=== PATIENT | female | born 1940 | race Hispanic/Latino ===

== ENCOUNTER 2019-08-11 17:54 | Emergency (ER) | payer MEDICARE ==
[~2019-08-11] VITALS: Ht 162.6 cm; Wt 75.3 kg
--- OUTSIDE RECORDS SUMMARY | 2019-08-11 17:56 | XMS REPORT | Clinical Summary ---
Author Author [facility] Organization [facility] Address Unknown Phone Unavailable Care Team Providers Care Cycle Counter Name Role Phone Orly Gutierrez MD PCP Allergies Comments Active Allergy Reactions Severity Noted Date Penicillins Itching, Rash Low 05/27/2017 Medications End Date Status Medication Sig Dispensed Refills Start Date Active insulin GLARGINE (LANTUS) Inject 40 0 100 unit/mL injection Units under (vial) the skin 2 (two) times a day. Active metFORMIN (GLUCOPHAGE) Take 1,000 mg 0 1,000 mg tablet by mouth 2 (two) times a day with meals. Active enalapril (VASOTEC) 10 MG Take 20 mg by 0 tablet mouth daily. Active pravastatin (PRAVACHOL) Take 20 mg by 0 20 MG tablet mouth nightly. Active ferrous sulfate 325 (65 Take 325 mg 0 FE) MG tablet by mouth daily with breakfast. Active aspirin (ECOTRIN) 81 MG Take 81 mg by 0 enteric coated tablet mouth every morning. Active CALCIUM CITRATE/VITAMIN Take 2 0 D3 (CITRACAL + D ORAL) tablets by mouth every morning. Active cyclobenzaprine Take 5 mg by 0 (FLEXERIL) 5 mg tablet mouth nightly. Active ascorbic acid, vitamin C, Take 500 mg 0 (VITAMIN C) 500 MG tablet by mouth daily. Active ranitidine (ZANTAC) 150 Take 150 mg 0 MG tablet by mouth 2 (two) times a day. Active glipiZIDE (GLUCOTROL) 10 Take 10 mg by 0 MG tablet mouth 2 (two) times a day before meals. Active meloxicam (MOBIC) 7.5 mg Take 7.5 mg 0 tablet by mouth daily. Active gabapentin (NEURONTIN) Take 300 mg 0 300 mg capsule by mouth 3 (three) times a day. Active carvedilol (COREG) 6.25 Take 6.25 mg 0 MG tablet by mouth 2 (two) times a day with meals. Active atorvastatin (LIPITOR) 40 Take 40 mg by 0 MG tablet mouth daily. Active oxybutynin XL Take 1 tablet 30 tablet 3 (DITROPAN-XL) 5 MG 24 hr (5 mg total) 9 tablet by mouth daily. 04/26/2020 Active estradiol (ESTRACE) 0.01 Apply nightly 42.5 g 5 % (0.1 mg/gram) vaginal for 3 weeks, 9 cream then 3 times per week. 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 To take with a vitamin C 500mg daily, stop if taking antibiotics 07/13/2020 Active oxybutynin XL (DITROPAN Take 1 tablet 90 tablet 3 XL) 15 MG 24 hr tablet (15 mg total) 9 by mouth daily. 09/05/2019 Active lidocaine (LIDODERM) 5 % Place 1 patch 30 patch 0 on the skin 9 daily for 30 days. Remove & Discard patch within 12 hours or as directed by MD 08/13/2019 Active traMADol (ULTRAM) 50 mg Take 1 tablet 10 tablet 0 tabletIndications: Acute (50 mg total) 9 Pain by mouth every 6 (six) hours as needed for moderate pain for up to 7 days .Acute Pain. 04/27/2019 Discontinued (Reorder) methenamine (HIPREX) 1 Take 1 g by 0 gram tablet mouth every morning. To take with a vitamin C 500mg daily, stop if taking antibiotics 12/05/2018 Discontinued (Reorder) oxybutynin XL Take 5 mg by 0 (DITROPAN-XL) 5 MG 24 hr mouth daily. 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 To take with a vitamin C 500mg daily, stop if taking antibiotics 06/04/2019 trimethoprim (TRIMPEX) Take 1 tablet 30 tablet 2 100 mg tablet (100 mg 9 total) by mouth daily for 30 days. Status Hospital, Clinic, or Ordered Dose Route Frequency Start End Date Other Facility Date Administered Medication Ended gentamicin (GARAMYCIN) 80 mg IM once 01/24/20 injection 80 19 9 mgIndications: Chronic infective cystitis with hematuria, Bilateral hydronephrosis Ended gentamicin (GARAMYCIN) 80 mg IM once 04/26/20 injection 80 19 9 mgIndications: Bilateral hydronephrosis, Chronic infective cystitis with hematuria, Urinary incontinence, urge, Urinary retention with incomplete bladder emptying Active Problems Problem Noted Date Urinary retention with incomplete bladder emptying 01/23/2019 Urinary incontinence, urge 01/23/2019 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 Bilateral hydronephrosis 06/02/2017 Encounters Care Team Description Date Type Specialty Rehrer, Jose Maria Becerra DO Acute right-sided thoracic back pain (Primary Dx); Urinary tract infection without hematuria, site unspecified; Essential hypertension 08/06/2019 Emergency Emergency Medicine Lisandro Fulton MD 07/14/2019 Transcribe Urology Orders Lisandro Fulton MD 07/14/2019 Telephone Urology Lucero Orosco PA Chronic radiation cystitis (Primary Dx) 07/06/2019 Office Visit UrologLisandro Villatoro MD 05/18/2019 Telephone Urology Shavonne Peterson MA 05/15/2019 Telephone Urology Lucero Orosco PA 05/05/2019 Orders Only Urology Lisandro Fulton MD Chronic infective cystitis with hematuria 04/28/2019 Telephone Urology Lisandro Fulton MD Bilateral hydronephrosis (Primary Dx); Chronic infective cystitis with hematuria; Urinary incontinence, urge; Urinary retention with incomplete bladder emptying 04/26/2019 Office Visit Urology Nanci Patel MA 02/24/2019 Telephone Urology Lisandro Fulton MD Chronic infective cystitis with hematuria (Primary Dx); Bilateral hydronephrosis; Urinary incontinence, urge; Urinary retention with incomplete bladder emptying 01/23/2019 Office Visit Urology Lucero Orosco PA 12/08/2018 Telephone Urology Lucero Orosco PA 12/07/2018 Telephone Urology Ligia Pacheco 12/06/2018 Telephone Employee Health Lucero Orosco PA Recurrent UTI (urinary tract infection) (Primary Dx); Chronic radiation cystitis; Mixed incontinence; Atrophic vaginitis 12/05/2018 Office Visit Urology after 08/10/2018 Social History Date Tobacco Use Types Packs/Day Years Used Never Smoker Smokeless Tobacco: Never Used Drinks/Week oz/Week Comments Alcohol Use No Sex Assigned at Date Recorded Not on file Industry Job Start Date Occupation Not on file Not on file Not on file Travel End Travel History Travel Start No recent travel history available. Last Filed Vital Signs Reading Time Taken Comments Vital Sign 185/77 08/06/2019 11:48 AM CDT Blood Pressure 80 08/06/2019 11:48 AM CDT Pulse 37.4 C (99.3 F) 08/06/2019 11:48 AM CDT Temperature 18 08/06/2019 11:48 AM CDT Respiratory Rate 97% 08/06/2019 11:48 AM CDT Oxygen Saturation - - Inhaled Oxygen Concentration 62.6 kg (138 lb) 08/06/2019 11:48 AM CDT Weight 157.5 cm (5' 2") 08/06/2019 11:48 AM CDT Height 25.24 08/06/2019 11:48 AM CDT Body Mass Index Plan of Treatment Care Team Description Date Type Specialty Lisandro Fulton MD [address] [address] 10/02/2019 Office Visit Urology Health Maintenance Due Date Last Done Comments SHINGLES VACCINES (#1) 1992 65+ PNEUMOCOCCAL VACCINE 2007 (1 of 2 - PCV13) INFLUENZA VACCINE 06/22/2019 Procedures Comments Procedure Name Priority Date/Time Associated Diagnosis ESTIMATED GFR STAT 08/06/2019 1:51 PM CDT TROPONIN, I-STAT STAT 08/06/2019 1:51 PM CDT COMPREHENSIVE METABOLIC STAT 08/06/2019 PANEL 1:51 PM CDT HC COMPLETE BLD COUNT STAT 08/06/2019 W/AUTO DIFF 1:51 PM CDT GRAM STAIN Routine 08/06/2019 12:42 PM CDT URINE CULTURE Routine 08/06/2019 12:42 PM CDT URINALYSIS STAT 08/06/2019 12:41 PM CDT ECG 12-LEAD STAT 08/06/2019 12:33 PM CDT XR CHEST 2 VW STAT 08/06/2019 12:28 PM CDT XR THORACIC SPINE 2 VW STAT 08/06/2019 12:28 PM CDT ECG ED PRELIMINARY Routine 08/06/2019 INTERPRETATION 12:22 PM CDT URINE CULTURE Routine 07/06/2019 Chronic radiation 12:38 PM CDT cystitis POC URINALYSIS DIPSTICK Routine 07/06/2019 Chronic radiation 12:16 PM CDT cystitis URINE CULTURE Routine 04/26/2019 Bilateral hydronephrosis 1:40 PM CDT Chronic infective cystitis with hematuria Urinary incontinence, urge Urinary retention with incomplete bladder emptying POC URINALYSIS DIPSTICK Routine 04/26/2019 Bilateral hydronephrosis 1:27 PM CDT Chronic infective cystitis with hematuria Urinary incontinence, urge Urinary retention with incomplete bladder emptying URINE CULTURE Routine 01/23/2019 Chronic infective 5:33 PM [employer] cystitis with hematuria Bilateral hydronephrosis POC URINALYSIS DIPSTICK Routine 01/23/2019 Chronic infective 3:17 PM [employer] cystitis with hematuria Bilateral hydronephrosis URINE CULTURE Routine 12/05/2018 Recurrent UTI (urinary 1:56 PM [employer] tract infection) POC URINALYSIS DIPSTICK Routine 12/05/2018 Recurrent UTI (urinary 12:12 PM [employer] tract infection) after 08/10/2018 Results * Estimated GFR (08/06/2019 1:51 PM CDT) [facility] Estimated GFR 74 mL/min/1.73 m2 [facility] Comment: [facility]pretation [facility]ENTER G1 >=90 Normal or high G2 60-89Mildly decreased [id number] Mildly to moderately decreased [id number] Moderately to severely decreased G4 15-29Severely decreased G5 <15Kidney failure The eGFR was calculated using the Chronic Kidney Disease Epidemiology Collaboration (CKD-EPI) equation. Interpretation is based on recommendations of the National Kidney Foundation-Kidney Disease Outcomes Quality Initiative (NKF-KDOQI) published in 2014. Specimen Plasma specimen Performing Organization Address City/[facility]/[place] [address] PATHOLOGY AND GENOMIC [address] [place], [place] [id number] [place] [address] EMERGENCY CARE CENTER * Troponin, I-Stat (08/06/2019 1:51 PM CDT) [facility] Troponin, 0.01 0.00 - 0.08 ng/mL [facility] I-Stat Comment: [facility] EMERGENCY CARE changed methodology effective: CENTER 03/28/2019 at 10:00 am The new method has a 99th percentile cutoff of 0.040 ng/mL Specimen Plasma specimen Performing Organization Address City/[facility] [place] [address] PATHOLOGY AND [address] [place] [address] EMERGENCY CARE CENTER * CBC with platelet and differential (08/06/2019 1:51 PM CDT) [facility] WBC 9.34 4.50 - 11.00 k/uL [facility] RBC 3.87 (L) 4.20 - 5.50 m/uL [facility] HGB 11.8 (L) 12.0 - 16.0 g/dL [facility] HCT 36.8 (L) 37.0 - 47.0 % [facility] MCV 95.1 82.0 - 100.0 fL [facility] MCH 30.5 27.0 - 34.0 pg [facility] MCHC 32.1 31.0 - 37.0 g/dL [facility] RDW - SD 43.4 37.0 - 55.0 fL [facility] MPV 9.5 8.8 - 13.2 fL [facility] Platelet count 346 150 - 400 k/uL [facility] Neutrophils 70.2 (H) 39.0 - 69.0 % [facility] Lymphocytes 23.4 (L) 25.0 - 45.0 % [facility] Monocytes 4.6 0.0 - 10.0 % [facility] Eosinophils 1.6 0.0 - 5.0 % [facility] Basophils 0.2 0.0 - 1.0 % [facility] Specimen Blood Performing Organization Address City/State/Zipcode Phone Number DEPARTMENT OF [facility] [place] [address] PATHOLOGY AND GENOMIC [address], [address] [place] [address] EMERGENCY CARE CENTER * Comprehensive metabolic panel (08/06/2019 1:51 PM CDT) Sodium 137 135 - 148 mEq/L [facility] Potassium 4.1 3.5 - 5.0 mEq/L [facility] Chloride 102 98 - 112 mEq/L [facility] CO2 23 (L) 24 - 31 mEq/L [facility] Anion gap 12@ANIO 7 - 15 mEq/L [facility] BUN 18 8 - 23 mg/dL [facility] Creatinine 0.77 0.50 - 0.90 mg/dL [facility] Glucose 187 (H) 65 - 99 mg/dL [facility] Calcium 9.3 8.8 - 10.2 mg/dL [facility] Protein 7.5 6.3 - 8.3 g/dL [facility] Albumin 4.4 3.5 - 5.0 g/dL [facility] A/G ratio 1.4 0.7 - 3.8 [facility] Alkaline 65 35 - 104 U/L [facility] phosphatase [facility] AST 23 10 - 35 U/L [facility] ALT 16 5 - 50 U/L [facility] Total bilirubin 0.6 0.0 - 1.2 mg/dL [facility] Specimen Plasma specimen Performing Organization Address [facility] Phone Number [facility] [address] [place] [address] PATHOLOGY AND GENOMIC [facility] [address] [place] [address] EMERGENCY CARE CENTER * Gram stain (08/06/2019 12:42 PM CDT) Gram stain Few WBC's [facility] result No organisms seen [facility] Comment: HOSPITAL Specimen Information Specimen Source: Urine Specimen Site: Urine, clean catch Specimen Urine - Urine, clean catch Performing Organization Address [facility]/[place] Phone Number [facility] [place] [address] PATHOLOGY AND [place] [address] HOSPITAL * Urine culture (08/06/2019 12:42 PM CDT) Only the most recent of 5 results within the time period is included. Urine culture Mixed karan <=10-3 col/cc [facility] isolate Comment: [facility] Specimen Information HOSPITAL Specimen Source: Urine Specimen Site: Urine, clean catch Specimen Urine - Urine, clean catch Performing Organization Address [facility]/[place] Phone Number [facility] DEPARTMENT OF [address] [place] [address] PATHOLOGY AND GENOMIC MEDICINE [place] [address] HOSPITAL * Urinalysis (08/06/2019 12:41 PM CDT) Glucose, UA Negative Negative [facility] Bilirubin, UA Negative Negative [facility] Ketones, UA Negative Negative [facility] Specific 1.010 1.001 - 1.035 [place] gravity, UA [facility] Blood, UA Small (A) Negative [facility] pH, UA 6.5 5.0 - 8.5 [facility] Protein, UA Negative Negative [facility] Urobilinogen, <2.0 <2.0 [facility] Nitrite, UA Negative Negative [facility] Leukocyte Small (A) Negative [facility] esterase, UA [facility] Color, UA Yellow [facility] Appearance, UA Hazy [facility] Specimen Urine Performing Organization Address City/[facility]/Zipcode Phone Number DEPARTMENT OF [address] [place] [address] PATHOLOGY AND GENOMIC [address], [facility] [address] [place] [address] EMERGENCY CARE CENTER * ECG 12 lead (08/06/2019 12:33 PM CDT) Ventricular 82 [facility] rate Atrial rate 82 [facility] HI interval 106 [facility] QRSD interval 74 [facility] QT interval 378 [facility] QTC interval 441 [facility] P axis 1 28 [facility] QRS axis 1 -4 [facility] T wave axis 65 [facility] EKG impression Sinus rhythm with short [facility] HI-Possible Left atrial enlargement-Borderline ECG-In automated comparison with ECG of 27-MAY-2017 12:42,-Questionable change in QRS axis- Specimen Narrative Performed At Performing Organization Address [facility] Phone Number [facility] [address] [place] [address] * XR Chest 2 Vw (08/06/2019 12:28 PM CDT) Specimen Narrative Performed At XR CHEST 2 VW [facility] CLINICAL INDICATION:Chest painacutenonspecificlow prob CAD COMPARISON:None. IMPRESSION: The lungs are clear of focal consolidation. The cardiomediastinal silhouette demonstrates a normal contour. There is no pleural effusion or gross pneumothorax. There are no acute osseous abnormalities. [facility]-[id number] Procedure Note Interface, Radiology Results Incoming - 08/06/2019 12:33 PM CDT XR CHEST 2 VW CLINICAL INDICATION: Chest pain acute nonspecific low prob CAD COMPARISON: None. IMPRESSION: The lungs are clear of focal consolidation. The cardiomediastinal silhouette demonstrates a normal contour. There is no pleural effusion or gross pneumothorax. There are no acute osseous abnormalities. [facility]-[id number] Performing Organization Address [facility] Phone Number [facility] [address] [place] [address] * XR Thoracic Spine 2 Vw (08/06/2019 12:28 PM CDT) Specimen Narrative Performed At PROCEDURE:XR THORACIC SPINE 2 VW [facility] CLINICAL HISTORY:upper back pain COMPARISON:None. TECHNIQUE: 3 views of the thoracic spine were performed . FINDINGS: The vertebral body heights and alignment are preserved. There is no acute fracture or subluxation. There are no osseous lesions present. Anterior spondylosis without loss of disc height. Mild dextroconvex scoliosis of thoracic spine. The pedicles and posterior neural arch elements are normal. IMPRESSION: 1. There is no acute fracture or subluxation. 2.Anterior spondylosis without loss of disc height. [facility]-[id number] Procedure Note Interface, Radiology Results Incoming - 08/06/2019 12:51 PM CDT PROCEDURE: XR THORACIC SPINE 2 VW CLINICAL HISTORY: upper back pain COMPARISON: None. TECHNIQUE: 3 views of the thoracic spine were performed . FINDINGS: The vertebral body heights and alignment are preserved. There is no acute fracture or subluxation. There are no osseous lesions present. Anterior spondylosis without loss of disc height. Mild dextroconvex scoliosis of thoracic spine. The pedicles and posterior neural arch elements are normal. IMPRESSION: 1. There is no acute fracture or subluxation. 2. Anterior spondylosis without loss of disc height. [facility]-[id number] Performing Organization Address [facility] Phone Number [facility] [address] [place] [address] * ECG ED Preliminary Interpretation - Not an Order (08/06/2019 12:22 PM CDT) Narrative Performed At Jose Maria Jack DO 08/06/20194:39 PM ECG ED Preliminary Interpretation - Not an Order Performed by: Jose Maria Jack DO Authorized by: Jose Maria Jack DO ECG reviewed by ED Physician in the absence of a structural technician: yes Interpretation: Interpretation: abnormal Rate: ECG rate:82 Rhythm: Rhythm: sinus rhythm QRS: QRS axis:Normal QRS intervals:Normal Conduction: Conduction: normal ST segments: ST segments:Normal T waves: T waves: normal Other findings: Other findings: LAE Other findings comment:Short HI * POC urinalysis dipstick (07/06/2019 12:16 PM CDT) Only the most recent of 4 results within the time period is included. Color urine, Yellow POC Clarity urine, Clear POC Glucose urine, 1+ (A) Negative POC Bilirubin Negative Negative urine, POC Ketones urine, Negative Negative POC Specific 1.025 1.005 - 1.030 gravity urine, POC Blood urine, Trace (A) Negative POC pH urine, POC 5.5 5.0, 5.5, 6.0, 6.5, 7.0, 7.5, 8.0, 8.5 Protein urine, Negative Negative POC Urobilinogen <2.0 <2.0 urine, POC Nitrite urine, Negative Negative POC Leukocyte Small (A) Negative esterase urine, POC Specimen Urine after 08/10/2018 Insurance Type Payer Benefit Subscriber ID Effective Phone Address Plan / Dates Group [facility] MEDICARE AARP xxxxxxxxx 2017-P MEDICARE resent COMPLETE [facility] ([place] [place] [address] Advance Directives For more information, please contact: [phone] 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
--- OUTSIDE RECORDS SUMMARY | 2019-08-11 17:56 | XMS REPORT ---
Author Author [facility] Address Unknown Phone Unavailable Care Team Providers Care Bridge Operator Name Role Phone NELLIE HEREDIA PP Unavailable Ashok RUIZ Unavailable Unavailable GENOVEVA RUCKER Unavailable Unavailable Problems This patient has no known problems. Allergies, Adverse Reactions, Alerts This patient has no known allergies or adverse reactions. Medications This patient has no known medications. Encounters Start Date/Time End Date/Time Encounter Type Admission Type Attending [facility] Facility Care Department Encounter ID 2019-07-30 17:37:00 2019-07-30 17:37:00 Emergency E [facility] [id number] 2019-07-27 19:28:00 2019-07-27 19:28:00 Emergency E [facility] 7512 2019-07-03 18:47:00 2019-07-03 18:47:00 Emergency E [facility] 7511 2019-07-02 16:40:00 2019-07-02 16:40:00 Emergency E [facility] 7510 2019-06-28 10:37:00 2019-06-28 10:37:00 Emergency E [facility] [id number] 2019-04-20 15:26:00 2019-04-20 12:42:00 Inpatient E [facility] MED [id number] 2019-02-25 17:36:00 2019-02-25 15:02:00 Inpatient E [facility] MED [id number] 2019-02-07 15:55:00 2019-02-07 15:55:00 Outpatient [facility] MED [id number] 2019-02-06 10:59:00 2019-02-06 10:59:00 Emergency E [facility] 7505 2018-03-08 07:05:00 2018-03-08 07:05:00 Outpatient ROMERO CHOW [facility] MED [id number] 2018-02-25 13:08:00 2018-02-25 13:08:00 Outpatient Sean [facility] [id number] 2018-01-31 19:58:00 2018-01-31 19:58:00 Emergency E GENOVEVA RUCKER [facility] [id number] 2017-07-30 14:37:00 2017-07-30 14:37:00 Outpatient C [facility] [id number] 2017-05-31 12:51:00 2017-05-31 12:51:00 Outpatient C [facility] [id number] 2017-05-07 10:41:00 2017-05-07 10:41:00 Outpatient C [facility] [id number] Results Test Description Test Time Test Comments Text Results Atomic Results Result Comments Urinalysis Microscopic 2019-06-27 15:47:21 UA WBC (test code=UA WBC) TNTC 0-5 UA RBC (test code=UA RBC) 0-5 0-5 UA Bacteria (test code=UA Bacteria) Many UA Squam Epithelial (test code=UA Squam Epithelial) 0-5 Urinalysis with Microscopic if [id number] 15:04:31* Test Item Value Reference Range Comments UA Color (test code=UA Color) STRAW Yellow UA Appear (test code=UA Appear) SCLD Clear UA pH (test code=UA pH) 5 UA Spec Grav (test code=UA Spec Grav) 1.017 1.001-1.035 UA Glucose (test code=UA Glucose) 300 mg/dL Negative UA Ketones (test code=UA Ketones) 15 mg/dL Negative UA Blood (test code=UA Blood) 10 cells/mcL Negative UA Protein (test code=UA Protein) NEG Negative UA Bili (test code=UA Bili) NEG Negative UA Urobilinogen (test code=UA Urobilinogen) 0.2 mg/dL UA Nitrite (test code=UA Nitrite) NEG Negative UA Leuk Est (test code=UA Leuk Est) 500 cells/mcL Negative UA Micro Ind? (test code=UA Micro Ind?) Indicated Not Indicated Result created by rule GL_SJM_UA_MICRO_IND XR Chest 1 View [id number] 14:13:34Patient: BREANNE BROOKE Date/Time01/25/2019 13:59 CSTReason for ExamPRE OPReportEXAM: CHEST ONE VIEWINDICATION: PRE OPCOMPARISON: None availableTECHNIQUE: AP view of the chest.FINDINGS:The cardiomediastinal silhouette is normal. There are atherosclerotic calcifications of the thoracic aorta. The lungs are clear bilaterally. No pneumothorax or pleural effusion is identified. The osseous structures are unremarkable.IMPRESSION:No acute cardiopulmonary process.LOCATION: R16 Final Dictated by: MD Shaikh Melanie CDictated DT/TM: 01/25/2019 2:13 pmSigned by: MD Shaikh Melanie CSigned (Electronic Signature): 01/25/2019 2:13 pmXR Ankle Complete 3+ Views [id number] 14:38:03Patient: BREANNE BROOKE Date/Time12/02/2018 14:26 CSTReason for ExamFracture right ankleReportEXAM: XR ANKLE 3 VIEWS, RIGHTINDICATION: Fracture right ankleCOMPARISON: None availableTECHNIQUE: AP, lateral and oblique views of the right ankle.FINDINGS:No acute fracture or dislocation is identified. There is a healing fracture of the distal fibula. The joint spaces are maintained. The ankle mortise is preserved. No soft tissue abnormality is identified.IMPRESSION:Healing fracture of the distal right fibula. No new fractures are identified.LOCATION: R16 Final Dictated by: MD Shaikh Melanie CDictated DT/TM: 12/02/2018 2:37 pmSigned by: MD Shaikh Melanie CSigned (Electronic Signature): 12/02/2018 2:38 pmUS Fine Needle Aspiration Thyroid [id number] 18:10:56Patient: BREANNE BROOKE Date/Time10/25/2018 03:16 CSTReason for ExamE04.9ReportULTRASOUND GUIDED THYROID FNAHISTORY: E04.9COMMENT: Following the explanation of risks, benefits and alternative treatment options, informed consent was obtained. The patient was placed supine on the stretcher and prepped and draped in sterile fashion. 1% Xylocaine was used for local anesthesia. Focused ultrasound was performed to identify the 5 cm heterogeneous, partially cystic nodule in the left thyroid lobe. Under direct ultrasound guidance, multiple FNA passes were made of the nodule without complication. The aspirates were given to the pathology team who was on-site for the procedure. A sterile dressing was applied. The patient left the room in satisfactory condition.FINDINGS:Number passes: 8Adequacy: A etl manager present on site determined the sample to be adequate.Complications: NoneIMPRESSION:Successful ultrasound guided FNA of the left thyroid nodule without complication.LOCATION: R16 Final Dictated by: MD Nunez Adam FDictated DT/TM: 10/25/2018 6:10 pmSigned by: MD Nunez Adam FSigned (Electronic Signature): 10/25/2018 6:10 pmXR Foot Complete 3+ Views [id number] 14:49:29Patient: BREANNE BROOKE Date/Time10/12/2018 13:15 CSTReason for ExamPAINReportLocation F34Nqld:Right Ankle, 3 ViewsRight Foot, 3 ViewsHistory: Leg painComparison: None availableFi ndings:There is a nondisplaced oblique fracture at the lateral malleolus. This a ppears subacute. There is bimalleolar soft tissue swelling. No sizable joint eff usion. Ankle mortise alignment is maintained.Within the foot, joint space narro wing involves the interphalangeal joints throughout. Other joint spaces are pres erved bones appear demineralized. Vascular calcifications are seen.Impression:1. Subacute, nondisplaced oblique fracture, lateral malleolus.2. Bimalleolar soft tissue swelling.3. Note of peripheral vascular disease.Reported to Physician: Cherelle Heredia M.D. at 2:48 PM on 10/12/2018. Final Dictated by: William Hicks MD, Eniola FDictated DT/TM: 10/12/2018 1:41 pmSigned by: Sarai Butcher MD, Eniola FSigned (Electronic Signature): 10/12/2018 2:49 pmXR Ankle Complete 3+ Views [id number] 14:49:29Patient: BREANNE BROOKE Date/Time10/12/2018 13:15 CSTReason for ExamPAINReportLocation F39Zdpm:Right Ankle, 3 ViewsRight Foot, 3 ViewsHistory: Leg painComparison: None availableFindings:There is a nondisplaced oblique fracture at the lateral malleolus. This appears subacute. There is bimalleolar soft tissue swelling. No sizable joint effusion. Ankle mortise alignment is maintained.Within the foot, joint space narrowing involves the interphalangeal joints throughout. Other joint spaces are preserved bones appear demineralized. Vascular calcifications are seen.Impression:1. Subacute, nondisplaced oblique fracture, lateral malleolus.2. Bimalleolar soft tissue swelling.3. Note of peripheral vascular disease.Reported to Physician: Nellie Heredia M.D. at 2:48 PM on 10/12/2018. Final Dictated by: William Hicks MD, Eniola FDictated DT/TM: 10/12/2018 1:41 pmSigned by: Sarai Butcher MD, Eniola FSigned (Electronic Signature): 10/12/2018 2:49 pmUS [id number] 15:24:33Patient: TONY BROOKE Date/Time09/27/2018 12:17 CSTReason for ExamE04.9ReportTHYROID SONOGRAMLOCATION CODE: [id number]: Thyroid nodule. PalpableTECHNIQUE: Static sonographic images are provided for interpretation.FINDINGS:The right lobe of the thyroid measures 5 x 2 x 2.1 cm and the left lobe of the thyroid measures 8 x 4 x 3.8 . The isthmus measures 1.1 cm in thickness.- Large primarily solid nodule (with small cystic component) measures 4 .1 x 3.3 x 5.1 cm, encompasses most of the left lobe. It demonstrates internal vascularity.- Cyst at the left superior pole measures 0.9 x 0.7 x 1.0 cm, favors a colloid cyst..- Primarily solid nodule at the isthmus measures 2.1 x 1.2 x 1.8 cm, partially exophytic/bulging. It demonstrates vascularity..- Mixed cystic and solid nodule at the right lobe measures 1.4 x 1.2 x 0.9 cm.- Superior to this, at the mid right lobe, more solid nodule measures 1.2 x 0.8 x 1.3 cm, it demonstrates internal vascularity..- Other tiny nodules or cysts are seen in both lobes.IMPRESSION:1. Multinodular goiter.2. Dominant nodule measures 4 is 1 x 3.3 x 5.1 cm, left lobe. Recommend FNA.3. Other intermediate nodules include a 2.1 cm nodule at the isthmus and 1.2 cm solid nodule in the mid right lobe. Consider evaluation focal nodules on nuclear medicine thyroid scan to determine whether FNA these nodules as warranted versus 6 month follow-up. Final Dictated by: MD Le Eniola FDictated DT/TM: 09/27/2018 3:18 pmSigned by: MD Le Eniola FSigned (Electronic Si gnature): 09/27/2018 3:24 pmCT Pelvis w/ [id number] 13:32:00Patient: BREANNE ANDREA Date/Time08/24/2018 10:36 CDTReason for ExamS37.29XSReportCT PELVIS WITH CONTR ASTINDICATION: S37.29XSCOMPARISON: CT abdomen and pelvis dated July 22, 2018TE CHNIQUE:A CT cystogram was performed. 100 mL of Cystografin contrast was instil led directly into the urinary bladder via a pre-existing catheter. The images w ere obtained in the supine and decubitus positions. Intravenous contrast was no t given. One or more of the following dose reduction techniques were used: Auto mated exposure control, adjustment of the mA and/or kV according to patient size , and/or utilization of iterative reconstruction technique.FINDINGS:BLADDER: The urinary bladder is intact. No contrast extravasation is seen. A Stoll catheter is in place.REPRODUCTIVE ORGANS: The uterus is absent.LYMPH NODES: No retroper itoneal or pelvic adenopathy is seen.VISUALIZED PORTIONS:ABDOMINAL ORGANS: A sma ll hyperdense cyst is seen in the lower pole of the right kidney. This is stabl e from the comparison study.BOWEL: Within normal limits.PERITONEUM: There is mil d thickening along a midline abdominal wall incision. A drainage catheter termi nates in the right hemipelvis. Trace fluid is noted in the pelvic cul-de-sac.VE SSELS: Atherosclerotic changes.BONES: No aggressive osseous lesion is seen. Th e bones are osteopenic.IMPRESSION:1. The CT cystogram shows no evidence of blad ashley leak. A Stoll catheter is in place.2. Trace fluid is noted in the pelvic c ul-de-sac. A right pelvic drain is in place.LOCATION: R16 Final Dicta king by: MD Enrique, Tyler FDictated DT/TM: 08/24/2018 1:23 pmSigned by: Tiffanie cook MD, Tyler FSigned (Electronic Signature): 08/24/2018 1:32 pmUS Breast Complete [id number] 15:38:21Patient: BREANNE ANDREA Date/Time08/16/2018 14:51 CDTReason for ExamN60.89ReportLocation R 16- BILATERAL DIAGNOSTIC MAMMOGRAM WITH CAD- RIGHT BREAST ULTRASOUND COMPLETEHISTORY: 78 year-old female who presents with history of right breast biopsy 07/2017 with results of sclerosis/ADH, benign. 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 She's been seen in follow-up. No new complaints.COMPARISON: Breast ultrasound dated 07/30/2017, 05/31/2017. Multiple prior mammograms dating as far back as 04/01/2015, with most recent prior dated 05/27/2018.MAMMOGRAM:CC, ML and MLO views of both breastsThere are scattered areas of fibroglandular density.No evidence of new dominant mass, asymmetry architectural distortion or suspicious microcalcifications is seen. Diffuse benign calcifications bilaterally. Stable biopsy marker in the right breast 12:00 subareolar region.ULTRASOUND:Technique: Complete survey of the right breast with survey of the right axilla obtained. Real-time images of breasts p erformed by the radiologist as well.- Previously biopsied hypodense mass 12:00 r etroareolar, stable, 7 x 5 x 4 mm.-Intramammary lymph node at the 10:00 axis 8 c m from the nipple,7 x 4 x 5 mm, stable-Relatively simple oval cyst at the 7:00 a xis 6cm from the nipple, 7 x 3 x 6 mm, stable- Complicated cyst at the 4:00 axi s 1 cm from nipple, 3 x 2 x 3 mm- Irregular area of fibroglandular tissue at th e 9:00 axis 2 cm from the nipple without discrete mass. Attention on subsequent follow-ups.- No evidence of axillary lymphadenopathy.PHYSICAL EXAM:On exam, no p alpable abnormalities bilaterally.IMPRESSION:Probably benign findings. Previousl y biopsied subareolar area is stable.RECOMMENDATIONS: 12 MONTH FOLLOW-UP BILATER AL DIAGNOSTIC MAMMOGRAM AND RIGHT BREAST ULTRASOUND.BI-RADS Category 3: Probably benign Final Dictated by: MD Le Eniola FDictated DT /TM: 08/16/2018 3:26 pmSigned by: MD Le Eniola FSigned (Electron ic Signature): 08/16/2018 3:38 pmXR Chest 1 View CVAD Insertion Follow-up 2018-07-26 17:26:58Patient: BREANNE ANDREA Date/Time07/26/2018 17:10 CDTReason for ExamLine placementReportEXAMINATION: XR Chest 1 View CVAD Insertion Follow-up.LOCATION: R16.HISTORY: Line placement.COMPARISON: Chest x-ray 07/26/2018.FINDINGS:Examination is limited due to portable technique, patient body habitus and low lung volumes.Cardiac silhouette/Mediastinal contour: Persistent prominence of cardiac silhouette. Atherosclerotic calcification of aortic arch.Lungs: Bibasilar linear airspace opacities. Tiny bilateral pleural effusions. Pulmonary vascular congestion.Osseous Structures: Degenerative changes of thoracic spine.Additional Findings: Postoperative clips project over right upper abdomen. Right-sided PICC terminates over lower SVC.IMPRESSION:R ight-sided PICC terminates over lower SVC.Bibasilar linear airspace opacities co ncerning for atelectasis.Tiny bilateral effusions. Pulmonary vascular congestion . Final Dictated by: MD Baldo, Tatiana NDictated DT/TM: 07/26/20 18 5:24 pmSigned by: MD Baldo, Tatiana NSigned (Electronic Signature): 02/2018 5:26 pmXR Chest 2 [id number] 09:36:38Patient: BREANNE ANDREA Date/Time07/26/2018 09:10 CDTReason for ExamAbnormal CXR on 07/24/2018;Other (please specify)ReportPA AND LATERAL CHEST:Location R 16HISTORY: Follow-up abnormal chest x-rayCOMPARISON: Chest autograft dated 07/24/2018FINDINGS:Persistent mild bibasilar atelectasis or infiltrate. Bilateral pleural effusions seen on the lateral views. Cardiomediastinal silhouette is stable, heart size is normal. Moderate calcified plaque involves the aortic arch. Osseous structures are unremarkabl e.IMPRESSION:Small bilateral pleural effusions with bibasilar atelectasis/infilt rate. Final Dictated by: MD Le Eniola FDictated DT/T M: 07/26/2018 9:33 amSigned by: MD Le Eniola FSigned (Electronic Signature): 07/26/2018 9:36 amXR Chest 1 View [id number] 19:00:07 Patient: BREANNE ANDREA am Date/Time07/24/2018 18:32 CDTReason for ExamFeverReportEXAM: CHEST ONE VIEWINDI CATION: FeverCOMPARISON: None availableTECHNIQUE: AP view of the chest.FINDINGS: The cardiomediastinal silhouette is normal. There is airspace opacity in the rig ht middle lobe likely representing an infectious process such as pneumonia. No p neumothorax or pleural effusion is identified. The osseous structures are unrema rkable.IMPRESSION:Right middle lobe airspace opacity which may represent an infe ctious process such as pneumonia.LOCATION: R16 Final Dictated by: Martha irene MD, Melanie CDictated DT/TM: 07/24/2018 6:59 pmSigned by: MD Shaikh Mel anie CSigned (Electronic Signature): 07/24/2018 7:00 pmCT Pelvis w/ Contrast 2018-07-22 17:19:59Patient: BREANNE ANDREA Date/Time07/22/2018 17:11 CDTReason for Exambladder rupture;Other (please specify)ReportCT PELVIS WITHOUT IV CONTRAST.HISTORY: Other (please specify);bladder ruptureCOMPARISON: NoneTECHNIQUE: Helical axial images were obtained through the pelvis without intravenous contrast. 200 cc of Cystografin contrast was injected directly into a Stoll catheter prior to the PET/CT. Coronal and sagittal reformats were performed. CT dose reduction techniques were utilized.FINDINGS:BLADDER: A urinary bladder leak is confirmed. The defect is likely seen anteriorly at the dome (series 2, image 37). The contrast fills the pelvic cul-de-sac and extends bilaterally in the paracolic gutters.GENITALIA: The uterus is not seen.BOWEL: No bowel wall thickening or obstruction is seen.OTHER: No ventral hernias are seen.IMPRESSION:Intraperitoneal bladder rupture. Urologic consultation is rec ommended.Location: R16 Final Dictated by: MD Nunez Adam FDictat ed DT/TM: 07/22/2018 5:13 pmSigned by: MD Nunez Adam FSigned (Electronic Si gnature): 07/22/2018 5:19 pmCT Abdomen and Pelvis w/o [id number] 16:17:55Patient: BREANNE ANDREA Date/Time07/22/2018 15:19 CDTReason for Examvomiting, lower abd pain;Other (please specify)ReportCT ABDOMEN AND PELVIS WITHOUT CONTRASTHISTORY: Other (please specify);vomiting, lower abd painCOMPARISON: None.TECHNIQUE: Axial images of the abdomen and pelvis were obtained without intravenous or oral contrast. Coronal and sagittal reformats were provided. One or more of the following dose reduction techniques were used: Automated exposure control, adjustment of the mA and/or kV according to patient size, and/or utilization of iterative reconstruction technique.FINDINGS:Lower thorax: Pulmonary vascular congestion and groundglass opacities are noted in the lung bases. There is no pleural effusion.Hepatobiliary: Unremarkable. No intra or extrahepatic biliary ductal dilatation is identified.Gallbladder: The gallbladder is surgically absent.Spleen: The spleen is slightly small in size but otherwise unremarkable.Pancreas: Mild pancreatic atrophy is noted. The main pancreatic duct is nondilated.Adrenals: Unremarkable.Kidneys/ureters: Mild perinephric fat stranding is noted. Mild hydronephrosis is seen. There is a 9 mm hyperdense cyst in the lower pole of the right kidney.Bowel: The small bowel loops are fluid-filled but nondistended. The appendix is not identified. A moderate amount stool seen in the colon and rectum.Pelvic organs/bladder: There is likely a perforation of the urinary bladder although evaluation is limited by the lack of contrast. The urinary bladder is empty. A Stoll catheter resides in the pelvis. Gas and simple fluid (or urine) are seen in the prevesical space and paracolic gutters bilaterally.Vessels: Atherosclerotic calcifications are seen in the aorta.Lymph nodes: No lymphadenopathy.Bones/soft tissues: The bones are osteopenic.IMPRESSION:1. Suspected intraperitoneal bladder rupture. A follow-up contrast enhanced CT with delayed imaging would be of benefit. This finding was communicated to the ER physician, Dr. Bearden, at 1617 on 07/22/2018.2. Nonspecific fluid-filled bowel loops in the abdomen. Enteritis is not excluded.Exam Date/Time07/22/2018 15:19 CDTReportLOCATION: R16 Final Di ctated by: MD Nunez Adam FDictated DT/TM: 07/22/2018 3:56 pmSigned by: Harish schmid MD, Adam FSigned (Electronic Signature): 07/22/2018 4:17 pmXR Chest 1 View [id number] 13:44:00Patient: BREANNE ANDREA Date/Time07/22/2018 13:23 CDTReason for Examvomiting;Other (please specify)ReportEXAM: CHEST ONE VIEWINDICATION: VomitingCOMPARISON: None availableTECHNIQUE: AP view of the chest.FINDINGS:The cardiomediastinal silhouette is normal. The lungs are clear bilaterally. No pneumothorax or pleural effusion is identified. The osseous structures are unremarkable.IMPRESSION:No acute cardiopulmonary process.LOCATION: R16 Final Dictated by: MD Shaikh Melanie CDictated DT/TM: 07/22/2018 1:43 pmSigned by: MD Shaikh Melanie CSigned (Electronic Signature): 07/22/2018 1:44 pmCT Spine Cervical w/o [id number] 15:12:00Patient: BREANNE ANDREA Date/Time07/08/2018 13:40 CDTReason for ExamM54.2ReportEXAM: CT CERVICAL SPINE WITHOUT CONTRASTINDICATION: Neck painCOMPARISON: None availableTECHNIQUE: Axial CT imaging of the cervical spine was obtained without intravenous contrast. Cor onal and sagittal reformatted images were submitted for review. IV contrast: Non eDLP: 187.03 mGy-cmDISCUSSION:No acute fracture or dislocation is identified. Th e atlantoaxial and atlantooccipital articulations are normal. The vertebral bodi es are normal in height, alignment and density. The facet joints and spinous pro cesses are normal in alignment. The intervertebral disc heights are normal.No sp inal canal or neuroforaminal stenosis.The prevertebral soft tissues are normal i n appearance.There is enlargement of the thyroid gland with a large mass in the left thyroid lobe measuring 4.8 x 3.7 x 4.3 cm.IMPRESSION:1. No acute abnormal ity of the cervical spine.2. No spinal canal neuroforaminal stenosis.3. Larg e mass in the left thyroid lobe measuring up to 4.8 cm. Further evaluation with thyroid ultrasound is recommended.LOCATION: V93Ocaz CT exam was performed accord ing to our departmental dose optimization program, which includes automated expo sure control, adjustment of the mA and/or kV according to the patient size and/o r use of iterative reconstructive technique. Final Dictated by: Mukesh payan MD, Melanie CDictated DT/TM: 07/08/2018 3:10 pmSigned by: MD Shaikh Melan ie CSigned (Electronic Signature): 07/08/2018 3:12 pmMRI Brain w/ + w/o [id number] 16:32:11Patient: BREANNE ANDREA Date/Time05/27/2018 16:08 CDTReason for ExamD32.0ReportMRI Brain w/ + w/o ContrastLOCATION: V27Pmicmtu: D32.0 meningiomaComparison studies: None.TECHNIQUE:Multiplanar, multisequence MRI of the brain (including diffusion-weighted imaging) was performed before and after the administration of intravenous, gadolinium based contrast. Susceptibility artifacts obscure some details.DISCUSSION:Scalp/bone marrow: Unremarkable.Brain sulci: Appropriate for patient's age.Ventricles: Normal in size and configuration. No hydrocephalus.Extra-axial spaces:An approximately 1.8 x 2 x 1.7 cm enhancing, dural based left parafalcine mass at the left pars marginalis exerts mild mass effect on the left paracentral lobule and left precuneus (left parietal lobe). This mass is inseparable from the superior sagittal sinus. Adjacent mild focal subcortical T2/FLAIR hyperintensity along the left pars marginalis may be due to vasogenic edema and/or gliosis. There is no significant brain herniation. No additional masses or fluid collections.Parenchyma:A few small T2/FLAIR hyperintense foci in the supratentorial white matter are likely chronic microvascular ischemic changes.Magnetic susceptibility along the globi pallidi is likely due to age related mineralization.Otherwise, no mass, hemorr rajni, or acute vascular insults.No abnormal parenchymal, or leptomeningeal enhan cement is seen.Vessels: Normal flow voids in major arteries and veins.Sellar/Sup rasellar region: No abnormalities.Craniocervical junction: No abnormalities.Inc idental findings: The left ocular lens is thinned.IMPRESSION:1. Approximately 2 cm, enhancing, left parafalcine dural mass at the left pars marginalis is comp atible with a meningioma. There is mild mass effect on the left paracentral lobu le and left precuneus. The mass is inseparable from the superior sagittal sinus. Adjacent mild focal subcortical T2/FLAIR hyperintensity along the left pars mar ginalis may be due to vasogenic edema and/or gliosis.2. Otherwise, no acute in tracranial abnormalities.3. Minimal supratentorial chronic microvascular ische keara change. Final Dictated by: MD Smith Alfred EDictated DT/TM: 05/27/2018 4:15 pmSigned by: MD Sarah, Melquiades Pa (Electronic Signature ): 05/27/2018 4:32 pmXR BARIUM ENEMA W OR WO [id number] 12:58:36Exam: Double contrast barium enemaLocation code: [id number]: Incomplete colonosc opyCOMPARISON: None availableTECHNIQUE: Barium contrast was administered per rec cordell. Then aircontrast was instilled. Multiple fluoroscopic and radiographic imag eswere then obtained. A total of 1.24 minutes of fluoroscopy time wasutilized. A total of 10 fluoroscopic images were obtained.FINDINGS:Barium traversed the col on normally. There is tortuosity and smallcaliber of the sigmoid colon. No fold thickening or intrinsic orextrinsic filling defect is otherwise seen. There is n o abrupt caliberchange of the colon. The ascending, transverse and descending co herminia arenormal in caliber. Normal haustra are identified. No discrete fillingdefe cts are identified. There is small amount of contrast refluxing intothe terminal ileum which is normal in caliber.IMPRESSION:Slightly small caliber of the sigmo id colon and mild tortuosity which isnonspecific. No abnormal fold thickening or intrinsic or extrinsicfilling defect is seen. Remainder of the colon is normal in caliber.POC Glucose, [id number] 08:18:00* Test Item Value Reference Range Comments POC Glucose (test code=POCGLUC) 152 mg/dL 70-115 If you consider your patient critically ill, the Christa Accu-Chek InformII metershould not be used for Glucose determinations.Draw a venous Glucose and send to the Main Lab for Analysis. CT CERVICAL SPINE LTD W/O [id number] 16:17:40Exam: CT of the cervical spine without contrastLocation: R 16HISTORY: HeadacheCOMPARISON: None availableTECHNIQUE: Axial images of the cervical spinal were obtained withoutcontrast. Images were reformatted to create coronal and sagittalreco nstructions. One or more of the following dose reduction techniqueswere used: Au tomated exposure control, adjustment of the mA and/or kVaccording to patient siz e, and/or utilization of iterativereconstruction technique.FINDINGS:There is str aightening of normal cervical lordosis. There is no acutefracture or subluxation . Vertebral body heights are maintained.Intervertebral disc spaces are preserved . Facet joints are alignednormally. There is a large complex nodule in the left thyroid lobemeasuring 4.3 x 4.0 x 4.3 cm which slightly displaces the trachea to theright without focal attenuation. Mild groundglass densities areidentified in bilateral upper lobes.Occiput to C1: IntactC1-C2: Narrowing of the predental sp luma. Atlantoaxial joint ismaintained. No canal stenosis.C2-C3: No canal or charlene inal stenosis.C3-C4: Small disc osteophyte complex measuring 2 to 3 mm. No canal orforaminal stenosis.C4-C5: No canal or foraminal stenosis.C5-C6: No canal or f oraminal stenosis.C6-C7: Mild facet hypertrophy and foraminal narrowing. No gisel lstenosis.C7-T1: Mild left facet hypertrophy and foraminal narrowing. No canalst enosis.T1-T2: No canal or foraminal stenosis.IMPRESSION:1. Straightening of norm al cervical lordosis may indicate underlyingmuscle spasm.2. No acute osseous abn ormality.3. Mild foraminal narrowing at the C6-C7 and C7-T1 levels.4. Large nodu le in the left thyroid lobe measuring up to 4.[address] HEAD OR BRAIN WO CONTRAST 2018-02-25 14:40:25CT HEAD WITHOUT CONTRASTCLINICAL HISTORY: R51: HEADACHECOMPARISON: None available. TECHNIQUE: 5 mm axial images of the brain were obtained withoutcontrast. Coronal and sagittal reformats were obtained. FINDINGS: A left parasagittal 2 x 1.7 x 1.7 cm, partially calcified, dural based,extra-axial mass is seen at the vertex abutting the frontoparietal lobe. This likely represents a meningioma. No acute intracranial hemorrhageis seen. Mild periventricular low- attenuation changes are compatiblewith chronic microangiopathic ischemic disease. No midline shift orherniation is present.Arterial calcifications are seen in the carotid siphons and vertebralarteries. The cranial vault and skull base are intact. The paranasalsinuses and mastoid air cells are pneumatized and well-aerated. IMPRESSION:1. 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 MRI is the imaging modalityof choice for further characterization.2. Mild chronic microvascular ischemic disease.Location: R16 Comprehensive Metabolic [id number] 01:38:00* Test Item Value Reference Range Comments Sodium (test code=NA) 140 mmol/L 135-145 Potassium (test code=K) 4.2 mmol/L 3.5-5.1 Chloride (test code=CL) 102 mmol/L 98-105 Carbon Dioxide (test code=CO2) 28 mmol/L 22-29 Glucose (test code=GLU) 249 mg/dL 70-115 Blood Urea Nitrogen (test code=BUN) 23 mg/dL 8-23 Creatinine (test code=CREAT) 0.6 mg/dL 0.5-0.9 Calcium (test code=CA) 8.9 mg/dL 8.3-10.5 Prot Total (test code=TP) 6.9 g/dL 6.4-8.3 Albumin (test code=ALB) 4.1 g/dL 3.5-5.2 A/G Ratio (test code=AGRATIO) 1.5 Ratio Globulin (test code=GLOB) 2.8 2.9-3.1 Bili Total (test code=TBIL) 0.3 mg/dL 0.1-0.9 Alk Phos (test code=APHOS) 78 U/L 35-104 AST (test code=AST) 15 U/L 1-32 ALT (test code=ALT) 12 U/L 1-33 BUN/Creatinine Ratio (test code=BCRATIO) 38.3 Anion Gap (test code=AGAP) 10 mmol/L 7-16 Estimated GFR (test code=GFR) >60 mL/min/1.73m2 eGFR (estimated Glomerular Filtration Rate) is an estimated value,calculated from the patient's serum creatinine using the MDRD equation.It is NOT the patient's actual GFR. The eGFR provides a more clinicallyuseful measure of kidney disease than serum creatinine alone.This calculation takes sex and race into account, if the informationis provided. If the race is not provided, and the patient isAfrican-Equatorial [place], multiply by 1.212. If sex is not provided, and thepatient is female, multiply by 0.742. Results for patients <18 years ofage have not been validated by the MDRD study and should be interpretedwith caution.eGFR Result Interpretation:eGFR > or=60 is in the Normal RangeeGFR < 60 may mean kidney diseaseeGFR < 15 may mean kidney failureRanges recommended by the National Kidney Foundat ion,http://nkdep.nih.gov Urinalysis [id number] 01:31:00* Test Item Value Reference Range Comments Color (test code=COLOR) Yellow Yellow,Straw,Pl yellow Clarity (test code=CLAR) Sl Cloudy Clear Specific [place] (test code=SPGR) 1.019 1.001-1.035 pH (test code=PH) 5.0 5.0-9.0 Ketone (test code=KET) Negative mg/dL Negative Glucose (test code=GLUCUR) 1000 mg/dL Negative Protein (test code=PROT) 25 mg/dL Negative Bilirubin (test code=BILI) Negative mg/dL Negative Occult Blood (test code=UDOB) Moderate Negative Urobilinogen (test code=UROB) 0.2 mg/dL 0.2-1.0 Nitrite (test code=NIT) Positive Negative Leuk Esterase (test code=LEUK) Large Negative Micros Exam (test code=MEXAM) Indicated Epithelial Cells (test code=EPI) None /LPF 0-30 WBC, Urine (test code=UWBC) 41-50 /HPF 0-5 RBC, Urine (test code=URBC) None Seen /HPF 0-5 Bacteria (test code=BACT) Many /HPF CBC with [id number] 01:18:00* Test Item Value Reference Range Comments WBC (test code=WBC) 9.2 K/cumm 4.4-10.5 RBC (test code=RBC) 3.82 M/cumm 3.75-5.20 Hemoglobin (test code=HGB) 11.2 gm/dL 12.2-14.8 Hematocrit (test code=HCT) 35.0 % 36.5-44.4 MCV (test code=MCV) 91.6 fL 80-100 MCH (test code=MCH) 29.3 pg 27.0-32.5 MCHC (test code=MCHC) 32.0 g/dL 32.0-37.5 RDW (test code=RDW) 14.4 % 11.5-14.5 Platelet Count (test code=PLTCT) 345 K/cumm 140-440 MPV (test code=MPV) 9.8 fL Diff Method (test code=DIFFM) Auto Neutrophil (test code=NEUT) 58.0 % 36-70 Lymphocyte (test code=LYMPH) 32.8 % 12-44 Monocyte (test code=MONO) 4.3 % 0-11 Eosinophil (test code=EOS) 4.3 % 0-7 Basophil (test code=BASO) 0.5 % 0-2 Neutro Abs (test code=ANEUT) 5.3 K/cumm 1.6-7.4 Lymph Abs (test code=ALYMPH) 3.0 K/cumm 0.5-4.6 [place] Abs (test code=AMONO) 0.4 K/cumm 0.0-1.2 Eos Abs (test code=AEOS) 0.39 K/cumm 0.00-0.74 Baso Abs (test code=ABASO) 0.1 K/cumm 0.00-0.21 US GUIDED NEEDLE PLACEMENT [id number] 11:12:48Dictation location: R 16RIGHT BREAST ULTRASOUND GUIDED CORE BIOPSY WITH MARKER PLACEMENT ANDPOST-PROCEDURE RIGHT MAMMOGRAM: History: The patient presents for ultrasound guided core biopsy of theright breast at 12:00.Comparison made to prior ultrasound dated 05/31/2017. Informed consent was obtained from the patient which included adiscussion of risks, benefits and alternatives.Using ultrasound guidance, aseptic technique and %1 lidocaine localanesthesia, an incision was made in the skin with a scalpel. A 14 gaugecore biopsy needle was placed to the level of the nodule via coaxialtechnique using ultrasound guidance and multiple cores were obtained. Aribbon-shaped marker was deployed at the biopsy site. The patienttolerated the procedure without difficulty.The tissue specimens were plac ed in formalin and submitted to thepathologist for histologic analysis.Pressure was held on the biopsy site until all bleeding subsided. Theestimated blood loss was negligible. The skin incision was closed withSteri-strips. Post biopsy inst ructions were reviewed with the patientand a copy was given to her.Postprocedure mammogram was performed to evaluate clip placement. Pleasenote, a diagnostic ma mmogram was not performed. The biopsy marker is inthe expected location. The pat ient tolerated the procedure well and left the department in goodcondition.IMPRE SSION:1. Ultrasound guided core biopsy of the right breast at 12:00 withmarker ang butler. 2. Histopathology is pending.EMORY MAMMO DIAGNOSTIC UNI W/CAD-RIGHT 2017-07-30 11:12:48Dictation location: R 16RIGHT BREAST ULTRASOUND GUIDED CORE BIOPSY WITH MARKER PLACEMENT ANDPOST-PROCEDURE RIGHT MAMMOGRAM: History: The patient presents for ultrasound guided core biopsy of theright breast at 12:00.Comparison made to prior ultrasound dated 05/31/2017. Informed consent was obtained from the patient which included adiscussion of risks, benefits and alternatives.Using ultrasound guidance, aseptic technique and %1 lidocaine localanesthesia, an incision was made in the skin with a scalpel. A 14 gaugecore biopsy needle was placed to the level of the nodule via coaxialtechnique using ultrasound guidance and multiple cores were obtained. Aribbon-shaped marker was deployed at the biopsy site. The patienttolerated the procedure without difficulty.The tissue specimens were placed in formalin and submitted to thepathologist for histologic analysis.Pressure was held on the biopsy site until all bleeding subsided. Theestimated blood loss was negligible. The skin incision was closed withSteri-strips. Post biopsy instructions were reviewed with the patientand a copy was given to her.Postprocedure mammogram was performed to evaluate clip placement. Pleasenote, a diagnostic mammogram was not performed. The biopsy marker is inthe expected location. The patient tolerated the procedure well and left the department in goodcondition.IMPRESSION:1. Ultrasound guided core biopsy of the right breast at 12:00 withmarker placement. 2. Histopathology is pending.
[2019-08-11 18:33] LABS: CLARITY,URINE SL CLOUDY (CLEAR); COLOR,URINE YELLOW (YELLOW); KETONES,URINE NEGATIVE (NEGATIVE); LEUKOCYTE ESTERASE ,URINE TRACE (NEGATIVE); NITRITE,URINE NEGATIVE (NEGATIVE); PROTEIN,URINE DIPSTICK TRACE (NEGATIVE)
[2019-08-11 18:34] LABS: BILIRUBIN,URINE NEGATIVE (NEGATIVE); URINE UROBILINOGEN 0.2 mg/dL (0.2 - 1)
[2019-08-11 18:36] LABS: EPITHELIAL CELLS,URINE MODERATE /LPF
== END 2019-08-11 19:30 | disposition home or self-care (01) ==
LOC: ER 17:54
DX: M54.5 Low back pain (principal); N30.90 Cystitis, unspecified without hematuria; I10 Essential (primary) hypertension
CPT/HCPCS: 81001; 99282